=== PATIENT | male | born 1990 | race Caucasian/White ===

== ENCOUNTER 2023-08-25 11:36 | Emergency (ER) | payer OTHER, SELFPAY ==
--- NOTE | ~2023-08-25 | XR_ITS ---
EXAMINATION: XR FINGER, RIGHT CLINICAL INFORMATION: Thumb nail injury. COMPARISON: None available. TECHNIQUE: 3 radiographs of the right first digit. FINDINGS: The bones and soft tissues are normal. No fracture. Alignment is anatomic. Joint spaces are maintained. XR/XR finger RT min 2V IMPRESSION: No fracture or dislocation.
[2023-08-25 12:14] VITALS: BP 132/78; PULSE 90; RESP 18; TEMP 36.9; O2SAT 99; BMI 29.4
--- NOTE | 2023-08-25 12:14 | ED_ITS ---
HPI - Extremity Injury (Upper) General Chief Complaint: General Medical Stated Complaint: Hand injury @ work Time Seen by Provider: 08/25/23 14:47 Source: patient Mode of arrival: ambulatory Limitations: no limitations History of Present Illness ED Provider: Franchesca Espinoza PA-C HPI narrative: Patient is a 33 year old assigned male at with a history of intra- abdominal surgery presenting to the emergency department today with right thumb pain. Patient states that while he was at work he was putting tires away when his right thumb got stuck between the tire and the shelf, causing his right thumb nail to tear. Patient denies any dizziness, lightheadedness, abdominal pain, nausea, vomiting, fever, chills, blurry vision, double vision, loss of vision, chest pain, difficulty breathing, shortness of breath, back pain, night sweats, pain with urination, increased urinary frequency, increased urinary urgency, blood in his urine or stool, syncope or a near syncopal episode, bowel incontinence, bladder incontinence, bowel retention, bladder retention, or any other complaints at this time. MD complaint: injury to: right (thumb) Onset (ago): minute(s) Other injuries: none Place: work Severity: mild Severity scale (1-10): 3 Relieving factors: none Exacerbating factors: none Context: crush Associated symptoms: denies other symptoms Related Data Previous Rx's ?Medication ?Instructions ?Recorded doxycycline hyclate 100 mg tablet 100 mg PO BID 7 days #14 tabs 08/25/23 Allergies Allergy/AdvReac Type Severity Reaction Status Date / Time Penicillins Allergy Intermediate Hives Verified 08/25/23 12:14 Review of Systems 2 Constitutional: Constitutional: Reports no additional constitutional complaints, Denies chills, Denies fever(s) and Denies night sweats Eyes: Eyes: Reports no additional eye complaints, Denies blurry vision, Denies change in vision, Denies diplopia, Denies eye discharge, Denies loss of vision and Denies eye pain ENT: Denies dizziness Cardiovascular: Cardiovascular: Reports no additional cardiovascular complaints, Denies chest pain, Denies lightheadedness, Denies Loss of Consciousness and Denies dyspnea Respiratory: Respiratory: Reports no additional respiratory complaints and Denies dyspnea Gastrointestinal: Gastrointestinal: Reports no additional gastrointestinal complaints, Denies abdominal pain, Denies melena, Denies hematochezia, Denies change in bowel habits and Denies change in stool character Genitourinary: Genitourinary: Reports no additional male genitourinary complaints, Denies hematuria, Denies oliguria, Denies difficulty urinating, Denies dysuria, Denies urinary frequency, Denies urinary hesitancy, Denies urinary incontinence and Denies urinary urgency Musculoskeletal: Musculoskeletal: Reports no additional musculoskeletal complaints, Denies numbness and Denies tingling Comments: right thumb injury Neurologic: Denies dizziness, Denies loss of vision, Denies numbness and Denies tingling Psychiatric: Psychiatric: Reports no additional psychiatric complaints Endocrine: Endocrine: Reports no additional endocrine complaints Hematologic/Lymphatic: Hematologic/Lymphatic: Reports no additional hematologic/lymphatic complaints Allergic/Immunologic: Allergic/Immunologic: Reports no additional allergic/immunologic complaints PMFSH Past Medical History Attestation statement: The following information was validated with the patient. Source: old records reviewed and nursing notes reviewed Social History Social History Advance Directives: No Do you have a plan to hurt others: No Plan Physical Exam 2 Vital Signs: Vital Signs: Last Vital Signs Temp 98.5 F 08/25/23 15:38 Pulse 90 08/25/23 15:38 Resp 18 08/25/23 15:38 BP 132/78 08/25/23 15:38 Pulse Ox 99 08/25/23 15:38 O2 Del Method Room Air 08/25/23 15:38 BMI result Body Mass Index 29.4 Const: General: cooperative, no acute distress, alert and awake Nutritional Appearance: well nourished Orientation/consciousness: patient oriented x3 Limitations: no limitations HEENT: Head: Yes normal to inspection and Yes atraumatic Ears: hearing grossly normal bilaterally and external ears normal General nose exam: Normal external nose present, no nasal discharge noted and no epistaxis Face and sinus: Yes normal facial exam, No abrasion and No laceration Mouth: Normal oral and palatal mucosa present, no drooling and no muffled voice Eyes: General: appearance normal, both eyes and all related structures P eriorbital: periorbital findings normal Eyelids: Yes eyelids normal C onjunctivae: conjunctivae normal Pupils: Equal, round and reactive pupils present EOM: EOMs intact bilaterally Neck: Neck: Yes normal visual inspection, Yes full ROM and Yes no lymphadenopathy Chest: Chest palpation & inspection: normal inspection of the chest Resp: Effort & Inspection: normal respiratory effort and able to speak in complete sentences GI: Inspection: Yes normal to inspection Neuro: General: patient oriented x3 and moves all extremities Cranial nerves: Yes Equal, round and reactive pupils present Cognition (Neuro): n ormal cognition Motor exam (neuro): 5/5 motor strength present throughout Sensory Exam: Normal double simultaneous stimulation for sensation C oordination: [id number] test normal Extrem: General: Yes full ROM and Yes capillary refill normal Hand/finger images: 1. nail partially avulsed with the inferior most portion of the nail laying above the intact thumb skin Psych: Appearance: grossly normal Mental Status: mental status grossly normal Affect: normal affect Attitude: cooperative Thought process: N ormal thought process present Thought content: Normal thought content present Insight: Good insight present (Psych) Course Course Course Narrative: This is a Rapid Medical Examination (RME) performed by Jackson Moctezuma PA-C in triage. Full HPI, ROS, assessment and treatment plan per primary provider in the Main ED. 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 states my nail ripped off . was seen at , sent to ED to have nail put back in placed . denies numbness/tingling/weakness of RUE. unsure of last tetanus. right thumb dressed in triage. full ROM intact to right thumb. 2+radial pulse. Plan: xr ordered Medications Administered Discontinued Medications Generic Name Dose Route Start Last Admin Trade Name Freq PRN Reason Stop Dose Admin Diphtheria/Tetanus/Acell Pertussis 0.5 ml 08/25/23 15:21 08/25/23 15:27 Diphth,Pertus(Acell),Tet Adult 0.5 Ml Syringe IM 08/25/23 15:22 0.5 ml .ONCE ONE Administration Doxycycline Monohydrate 100 mg 08/25/23 15:21 08/25/23 15:27 Doxycycline Monohydrate 100 Mg Capsule PO 08/25/23 15:22 100 mg ONCE ONE Administration Medical Decision Making Medical Decision Making [facility] Narrative: Patient is a 33 year old assigned male at with a history of intra- abdominal surgery presenting to the emergency department today with a right thumb injury. Patient's physical exam was as documented in the physical exam portion of this note. Patient's right hand x-ray showed no acute process. I explained my physical exam findings as well as all test results to the patient. I answered all questions asked by the patient. Patient's right thumb was digitally blocked and the nail was manipulated back beneath the skin with a thin layer of dermabond placed over top the partially avulsed area. Patient's wound did not require manual closure with sutures. I stressed the importance of the patient taking his medication as prescribed. I stressed the importance of the patient NOT getting the affected area wet for at least 7 days. I stressed the importance of the patient performing daily wound checks and dressing changes. I stressed the importance of the patient following up with his primary care provider. I stressed the importance of the patient returning to the emergency department immediately if his symptoms were to worsen or if he were to develop any dizziness, shortness of breath, difficulty breathing, chest pain, blurry vision, loss of vision, nausea, vomiting, abdominal pain, fever, chills, back pain, or any other complaints. Patient verbalized agreement and understanding with this treatment plan and discharge. Differential Diagnosis Differential Diagnoses: The differential diagnosis associated with the presentation includes Nail avulsion Thumb injury Crush injury Admission/Observation Consideration of admission/observation: Escalation of care including admission/observation considered Patient would have been admitted to the hospital had his work up had any findings where hospital admission was appropriate and his clinical presentation warranted hospital admission. Independent Interpretation I performed an independent interpretation of an: Plain X-Ray Interpretation: My interpretation is in agreement with the radiologist's impression of this imaging study. - EXAMINATION: XR FINGER, RIGHT CLINICAL INFORMATION: Thumb nail injury. COMPARISON: None available. TECHNIQUE: 3 radiographs of the right first digit. FINDINGS: The bones and soft tissues are normal. No fracture. Alignment is anatomic. Joint spaces are maintained. XR/XR finger RT min 2V IMPRESSION: No fracture or dislocation. Dictated By: Brice Flanagan Jr, DO Signed By: Electronically signed by Brice Flanagan Jr, DO 08/25/23 6792 Radiology Impression Discussion of test interpretation with radiology: I have reviewed the radiologist's reading. Prescription Management I considered prescription management with: Antibiotic (patient prescribed an antibiotic given the mechanism of injury) Procedures Laceration Laceration 1: Site: other (1st digit) Side (If applicable): right Description: flap Depth: simple, single layer Pre-repair: irrigated extensively and deep structures intact Skin layer closed with: other (dermabond) Size (cm): other (dermabond) Technique: other (dermabond) Nerve Block Nerve Block 1: Time out performed: Yes Local Anesthetic: lidocaine 1% Amount of anesthesia used (mL): 4 Side: right Nerve Blocks: digital Procedure Successful: Yes Patient Tolerated Procedure: well Complications: none Critical Care Time Critical Care Time Critical Care Time: Yes Total Critical Care Time: 35 Attestation: I spent 35 minutes of Critical Care Time with this patient. This does not include time spent on separately reported billable procedures. Discharge Plan Discharge Clinical Impression: Avulsion of nail of right thumb Patient Disposition: Home, Self-Care Instructions: Skin Adhesive Care (ED), Nail Avulsion (ED) Additional Instructions: Do NOT Get the affected area wet for at LEAST 7 days. Follow up with your primary care provider and work connection. Take your antibiotic as prescribed. Return to the emergency department immediately if your symptoms worsen or if you develop any dizziness, shortness of breath, difficulty breathing, chest pain, blurry vision, loss of vision, nausea, vomiting, abdominal pain, fever, chills, back pain, or any other complaints. Prescriptions: New doxycycline hyclate 100 mg tablet 100 mg PO BID 7 Days Qty: 14 0RF [place] [facility] [facility] [place] [facility] [place] (Call to establish and follow up with a primary care provider. If you already have a primary care provider, please follow up with them.) [facility] [[facility]] [facility] [Provider [facility]] [facility] [Provider Group] (Call to establish and follow up with work connection.) Stand Alone Forms: Work/School Release Interventions: ED Discharge Assessment Last Done: 08/25/23 15:38 Discharge Date/Time: 08/25/23 15:39 Print Language: Hungarian
[2023-08-25] MEDS: Doxycycline Monohydrate 100 MG CAPSULE PO (15:27)
[2023-08-25] MEDS: Diphth,Pertus(ACell),Tet Adult 0.5 ML SYRINGE IM (15:27)
[2023-08-25 15:38] VITALS: BP 132/78; PULSE 90; RESP 18; TEMP 36.9; O2SAT 99
== END 2023-08-25 15:39 | disposition home or self-care (01) ==
PROVIDERS: Emergency Provider Emergency Medicine
DX: S61.131A Puncture wound without foreign body of right thumb with damage to nail, initial encounter (principal); S61.330A Puncture wound without foreign body of right index finger with damage to nail, initial encounter; W23.1XXA Caught, crushed, jammed, or pinched between stationary objects, initial encounter; Y93.89 Activity, other specified; Y92.69 Other specified industrial and construction area as the place of occurrence of the external cause; Y99.0 Civilian activity done for income or pay; M79.641 Pain in right hand; Z23 Encounter for immunization
CPT/HCPCS: 73140; 90471; 90715; 99283; 99284